=== PATIENT | female | born 1995 | race Caucasian/White ===

== ENCOUNTER 2021-10-15 16:25 | Emergency (ER) | payer OTHER ==
[~2021-10-15] VITALS: Ht 167.6 cm; Wt 57.8 kg
[2021-10-15] MEDS ORDERED: DIFLUCAN150 MG PO ×2 (16:53→17:19)
[2021-10-15] MEDS ORDERED: NYSTATIN SUSP1 ML/ML SSP ×2 (16:53→17:19)
[2021-10-15] MEDS ORDERED: MEDROL 4MG DOSEP4 MG PO ×2 (16:53→17:19)
== END 2021-10-15 17:23 | disposition home or self-care (01) ==
LOC: FER 16:25
DX: B37.0 Candidal stomatitis (principal); R21 Rash and other nonspecific skin eruption
CPT/HCPCS: 99282; J1100

== ENCOUNTER 2021-10-28 10:42 | Emergency (ER) | payer OTHER ==
[~2021-10-28 10:42] MED LIST: DIFLUCAN150 MG PO; MEDROL 4MG DOSEP4 MG PO; NYSTATIN SUSP1 ML/ML SSP
[2021-10-28] MEDS ORDERED: MEDROL 4MG DOSEP4 MG PO (11:47)
== END 2021-10-28 12:42 | disposition home or self-care (01) ==
LOC: FER 10:42
DX: R21 Rash and other nonspecific skin eruption (principal); F17.200 Nicotine dependence, unspecified, uncomplicated
CPT/HCPCS: 99282; J1100

== ENCOUNTER 2022-04-30 22:19 | Emergency (ER) | payer OTHER ==
[2022-04-30] MEDS ORDERED: NORCO 5-325 TA1 EACH PO (23:29)
[2022-04-30] MEDS ORDERED: PREDNISONE 20MG20 MG PO (23:29)
[2022-04-30] MEDS ORDERED: NAPROXEN500 MG PO (23:29)
[2022-04-30] MEDS ORDERED: VIBRAMYCIN100 MG PO (23:29)
== END 2022-04-30 23:55 | disposition home or self-care (01) ==
LOC: FER 22:19
DX: L02.416 Cutaneous abscess of left lower limb (principal); F17.210 Nicotine dependence, cigarettes, uncomplicated; Z28.310 Unvaccinated for COVID-19
CPT/HCPCS: J7512